=== PATIENT | male | born 1965 | race Caucasian/White ===

== ENCOUNTER 2018-12-15 12:38 | Emergency (ER) | payer MEDICAID ==
[~2018-12-15] VITALS: Ht 172.7 cm; Wt 85.0 kg
[2018-12-16 12:53] VITALS: BP 121/59
== END 2018-12-16 13:31 | disposition home or self-care (01) ==
LOC: ER 12:38 → EDBD 12:38 → ER 12-16 13:31
DX: F10.129 Alcohol abuse with intoxication, unspecified (principal)
CPT/HCPCS: 99283